=== PATIENT | female | born 1940 | race Caucasian/White ===

== ENCOUNTER 2018-10-22 09:03 | Day surgery (SDC) | payer MEDICARE, BC ==
[~2018-10-22 09:03] MED LIST: KETOROLAC TROMETHAMINE 0.45% 4 DROP/0.4 ML DROPERETTE OS PRN
[2018-10-22] MEDS ORDERED: MIDAZOLAM 2 MG/2 ML INJ ONE (09:25)
[2018-10-22] MEDS: TETRACAINE HCL 0.5% OPH SOLN 0.6 ML DROPERETTE OS PRN ×4 (10:02→10:45)
[2018-10-22] MEDS: CYCLOPENTOLATE 0.2%/PHENYLEPHRINE 1% OPH SOLN 2 ML OS PRN ×3 (10:03→10:25)
[2018-10-22] MEDS: TROPICAMIDE 1% OPH SOLN 3 ML OS PRN ×3 (10:03→10:25)
[2018-10-22] MEDS: BESIFLOXACIN HCL 0.6% OPH SUSP 5 ML BOTTLE OS PRN ×4 (10:03→11:12)
[2018-10-22] MEDS: BUPIVACAINE HCL 0.75% INJ/PF (7.5 MG/1 ML) 10 ML SDV OS PRN ×2 (10:45)
[2018-10-22] MEDS: LIDOCAINE 4% INJ/PF (40 MG/ML) 5 ML AMPUL OS PRN ×2 (10:45)
[2018-10-22] MEDS: CHONDR SU A NA/HYALUR INTRAOC KIT (SURGICARE) ONE ×2 (10:58)
[2018-10-22] MEDS: LIDOCAINE 1% INJ-PF (10 MG/ML) 30 ML SDV ONE ×2 (10:58)
[2018-10-22] MEDS: EPINEPHRINE INJ/PF 1 MG/1 ML AMPULE ONE ×2 (10:58)
[2018-10-22] MEDS: DORZOLAMIDE HCL 2%/TIMOLOL MALEAT 0.5% OPH SOLN 10 ML OS PRN ×2 (11:12)
--- NOTE | 2018-10-22 14:54 | [facility] OPERATIVE REPORT E ---
Surgical Operative Report NAME: TEODORO SALGADO AGE: 78Y DATE OF SURGERY: 10/22/2018 ROOM: PREOPERATIVE DIAGNOSIS: CATARACT, LEFTE EYE. POSTOPERATIVE DIAGNOSIS: CATARACT, LEFT EYE. PROCEDURE PERFORMED: PHACOEMULSIFICATION WITH TORIC INTRAOCULAR LENS IMPLANT, LEFT EYE. SURGEON: MONICA ROCHA MD ANESTHESIA: TOPICAL WITH MAC. INDICATIONS FOR SURGERY: Difficulty with glare with night driving. PROCEDURE: The patient was brought to the Operating Room and placed on the operative table. Prior to the surgery the patient was placed in seating position and a 0-270 and 180 degree axis of the eye was marked using a marking level. Following tetracaine drops, topical anesthesia was administered. This consisted of instrument wipe pledgets soaked in a solution of 4% Xylocaine mixed with 0.75% Marcaine in a 1:2 ratio. A 2 x 1 cm pledget was placed in the superior fornix. A 1 x 1 cm pledget was placed in the inferior fornix. The eye was patched shut for 5 minutes. The patch was removed. The eye was sterilely prepped and draped in the usual manner. Lid speculum was placed in the eye. The pledgets were removed. 4-0 black silk sutures were placed around the superior and the inferior rectus muscles to be used as traction. A conjunctival peritomy was made at the 10 o'clock position. Hemostasis was obtained with bipolar cautery. A posterior limbal groove was created using a crescent knife and dissected anteriorly towards the cornea. A sharp point blade was used to create a paracentesis site at the 2 o'clock position. A 2.4 mm keratome was used to enter the anterior chamber through the groove. Viscoelastic was injected into the anterior chamber. An anterior capsulotomy was performed using Utrata forceps in a capsulorrhexis fashion. Hydrodissection and hydrodelineation were performed. Phacoemulsification was performed in kkzhho-bve-lxyyyzr technique. A total of 5.59 CDE phaco time was used. Prior to placing the lens implant, the 90 degree axis was marked on the eye. The lens was centered at this axis. Following this, the I/A unit was used to remove residual cortex. Viscoelastic was injected into the capsular bag. Intraocular lens model SN6AT3, 22.5 diopters, serial number [id number] was placed in the capsular bag. The I/A unit was used to remove residual viscoelastic. The wound was seen to be watertight under high and low pressure, and no sutures were placed. The intraocular lens was well centered. The pressure was adjusted in the eye to normal pressure. The 4-0 black silk sutures and lid speculum were removed. The eye was shielded after Besivance drops were placed. The patient tolerated the procedure well and was sent to the Recovery Room in good condition. A drop of Cosopt was placed in the eye at the end of surgery. DICTATING PHYSICIAN: MONICA ROCHA M.D. DICTATING PHYSICIAN: MONICA ROCHA M.D. [id number] PHY#: [id number] ID: [id number] JOB#: [id number] ACCT: [id number] cc:MONICA ROCHA M.D. >
--- NOTE | 2018-10-22 14:59 | [facility] DISCHARGE SUMMARY E ---
[facility] Discharge Summary NAME: TEODORO SALGADO AGE: 78Y ADMITTED: 10/22/2018 DISCHARGED: 10/22/2018 FINAL DIAGNOSIS: CATARACT, LEFT EYE HOSPITAL COURSE: The patient is a 78-year-old lady who underwent uneventful cataract extraction with Toric intraocular lens implant, left eye on 10/22/18. She will be discharged to home. She is instructed to resume preoperative medications, take Tylenol as needed for discomfort, to keep her eye shielded, to use Inveltys, PROLENSA, and moxifloxacin at 3 p.m. and 8 p.m., and to follow up in my office in 1 day. DICTATING PHYSICIAN: MONICA ROCHA M.D. [id number] PHY#: [id number] ID: [id number] JOB#: [id number] ACCT: [id number] cc:MONICA ROCHA M.D. >
== END 2018-10-22 12:02 | disposition home or self-care (01) ==
LOC: SC 09:03
PROVIDERS: ATTEND Ophthalmology
DX: H25.812 Combined forms of age-related cataract, left eye (principal); H35.363 Drusen (degenerative) of macula, bilateral; H04.123 Dry eye syndrome of bilateral lacrimal glands; Z96.1 Presence of intraocular lens; H17.89 Other corneal scars and opacities; Z87.891 Personal history of nicotine dependence; E78.00 Pure hypercholesterolemia, unspecified; Z88.0 Allergy status to penicillin; Z88.2 Allergy status to sulfonamides; Z79.899 Other long term (current) drug therapy
CPT/HCPCS: 66984; V2787; J2250; J3490 ×4; A9270; J0171; 142